=== PATIENT | female | born 1995 | race African-American/Black ===

== ENCOUNTER 2018-01-26 23:03 | Emergency (ER) | payer SELFPAY ==
[2018-01-26 23:57] LABS: URINE HCG POC HCG NEGATIVE (Negative)
[2018-01-27] MEDS: AZITHROMYCIN 250 MG TABLET. PO (01:57)
[2018-01-28 14:29] LABS: CHLAMYDIA PROBE Negative (Negative); GC PROBE Negative (Negative)
== END 2018-01-27 02:01 | disposition home or self-care (01) ==
LOC: ER 23:03
DX: N76.0 Acute vaginitis (principal); B96.89 Other specified bacterial agents as the cause of diseases classified elsewhere; Z88.1 Allergy status to other antibiotic agents
CPT/HCPCS: 81025; 87491; 87591; 99283; 99284; Q0111; Q0144